=== PATIENT | female | born 1975 | race Caucasian/White ===

== ENCOUNTER 2018-09-02 08:48 | Outpatient (CLI) | payer BC | END 2018-09-02 18:40 | disposition home or self-care (01) | LOC: SMA 08:48 | PROVIDERS: ATTEND Family Medicine | DX: Z12.31 Encounter for screening mammogram for malignant neoplasm of breast (principal); N60.02 Solitary cyst of left breast | CPT/HCPCS: 76642; 77067 ==

== ENCOUNTER 2020-04-11 08:32 | Outpatient (CLI) | payer BC | END 2020-04-11 20:46 | disposition home or self-care (01) | LOC: SMA 08:32 | PROVIDERS: ATTEND Family Medicine | DX: Z12.31 Encounter for screening mammogram for malignant neoplasm of breast (principal) | CPT/HCPCS: 77067 ==